=== PATIENT | female | born 1995 | race Caucasian/White ===

== ENCOUNTER 2020-01-05 22:44 | Emergency (ER) | payer MEDICAID ==
[~2020-01-05] VITALS: Ht 170.2 cm; Wt 90.7 kg
[2020-01-05 22:51] VITALS: BP_SYST 128
[2020-01-05] MEDS ORDERED: IPRATROPIUM/ALBUTEROL SULFATE 3 ML AMPUL.NEB (DUONEB) INH ONE (23:15)
[2020-01-06 00:50] VITALS: BP_SYST 128
== END 2020-01-06 00:50 | disposition home or self-care (01) ==
LOC: SED 22:44
DX: J20.9 Acute bronchitis, unspecified (principal); F12.90 Cannabis use, unspecified, uncomplicated; Z20.828 Contact with and (suspected) exposure to other viral communicable diseases
CPT/HCPCS: 71045; 86710; 94640; 99284; U0003; C9803-CS